=== PATIENT | male | born 1950 | race Caucasian/White ===

== ENCOUNTER → 2018-03-30 14:13 | Outpatient (CLI) | payer MEDICARE, SELFPAY ==
[2018-03-30 16:44] LABS: D Dimer 237 ng/mL (<230)
== END ==
PROVIDERS: Visit Provider Physician Assistant
DX: M25.569 Pain in unspecified knee (principal)
CPT/HCPCS: 36415; 85379

== ENCOUNTER → 2018-04-05 07:15 | Outpatient (CLI) | payer MEDICARE, OTHER, SELFPAY | PROVIDERS: Visit Provider Physician Assistant | DX: M25.561 Pain in right knee (principal); M17.11 Unilateral primary osteoarthritis, right knee; M25.461 Effusion, right knee ==

== ENCOUNTER → 2018-04-05 09:22 | Outpatient (CLI) | payer MEDICARE, SELFPAY ==
--- NOTE | 2018-04-05 09:27 | DI.CT.S_ITS ---
PROCEDURE: CT LE RT WO CON INDICATIONS: Right knee pain TECHNIQUE: Noncontrast 1-1.5 mm axial sections acquired from the mid-patella to the proximal tibia, with coronal and sagittal reformats. COMPARISON: None. FINDINGS: Image quality: Excellent. Bones: No fracture or focal osseous destruction. There is scattered degenerative spurring. Soft tissues: Moderate joint effusion is noted. Quadriceps and patella tendons appear grossly intact although there is adjacent superficial infrapatellar subcutaneous fluid, nonspecific. Numerous vascular calcifications are present. 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 Moderate joint effusion. Mild prepatellar and superficial infrapatellar subcutaneous edema. If the patient's symptoms persist, recommend further evaluation with noncontrast MRI knee for better soft tissue assessment. Dictated by: Brett Bernstein M.D. on 04/05/2018 at 10:12 Approved by: Brett Bernstein M.D. on 04/05/2018 at 10:16
== END ==
PROVIDERS: PCP Physician Assistant; Visit Provider Physician Assistant
DX: M17.11 Unilateral primary osteoarthritis, right knee (principal); M25.561 Pain in right knee; M25.461 Effusion, right knee
CPT/HCPCS: 73700